=== PATIENT | female | born 1960 | race American Indian/Alaskan Native ===

== ENCOUNTER 2017-12-20 13:10 | Outpatient (CLI) | payer OTHER ==
[2017-12-20 13:33] LABS: Hematocrit 45.2 % (30.3-42.9); Hemoglobin 15.3 gm/dl (10.1-14.3); Mean Corpuscular HGB Conc 34 % (30-34); Mean Corpuscular Hemoglobin 30 pg (28-32); Mean Corpuscular Volume 89 fl (79-97); Platelet Count 235 K/mm3 (140-440); Red Cell Distribution Width 14.9 % (13.2-15.2)
[2017-12-20 13:56] LABS: Alanine Aminotransferase 18 units/L (7-56); Albumin 4.4 g/dL (3.9-5); BUN/Creatinine Ratio 55; Blood Urea Nitrogen 22 mg/dL (7-17); Calcium 9.4 mg/dL (8.4-10.2); Hemolysis Index 3
[2017-12-20 13:59] LABS: Erythrocyte Sedimentation Rate 4 mm/Hr (0-20)
== END 2017-12-20 13:11 | disposition home or self-care (01) ==
LOC: LAB 13:10
PROVIDERS: ATTEND Specialist
DX: G65.1 Sequelae of other inflammatory polyneuropathy (principal)
CPT/HCPCS: 36415; 80053; 82306; 82607; 83921; 84443; 85027; 85652; 86038; 86225; 86592